=== PATIENT | female | born 1980 | race Caucasian/White ===

== ENCOUNTER 2018-07-07 11:33 | Outpatient (CLI) | payer OTHER | END 2018-07-07 11:38 | disposition home or self-care (01) | LOC: SONOGRAMA 11:33 → MAMO-SONO 11:45 | DX: N92.0 Excessive and frequent menstruation with regular cycle (principal); E04.2 Nontoxic multinodular goiter ==

== ENCOUNTER 2020-03-25 10:46 | Outpatient (CLI) | payer OTHER | END 2020-03-25 10:51 | disposition home or self-care (01) | LOC: SONOGRAMA 10:46 | PROVIDERS: ATTEND Pathology Anatomic Pathology & Clinical Pathology | DX: E04.2 Nontoxic multinodular goiter (principal) ==